=== PATIENT | male | born 2000 | race Caucasian/White ===

== ENCOUNTER 2025-04-27 13:03 | Emergency (ER) | payer BC | END 2025-04-27 15:21 | disposition home or self-care (01) | LOC: MW.ED 13:03 | DX: L02.413 Cutaneous abscess of right upper limb (principal); Z75.3 Unavailability and inaccessibility of health-care facilities; Z88.4 Allergy status to anesthetic agent; Z79.899 Other long term (current) drug therapy | CPT/HCPCS: 99282 ==